=== PATIENT | male | born 1990 | race Caucasian/White ===

== ENCOUNTER → 2023-11-26 12:10 | Day surgery (SDC) | payer BC, SELFPAY ==
[2023-11-26] VITALS (12 sets, daily range): BP systolic 119–142; BP diastolic 73–93; BMI 29.4
--- NOTE | 2023-11-26 06:23 | ED.GENMED ---
History of Present Illness
General
Chief Complaint: Throat Problem
Source: patient
Exam Limitations: none
Time Seen by Provider: 11/26/23 06:14
Travel History
Have you had any contact with someone who has COVID-19?: No
Do you have any symptoms of coronavirus? Fever > 100 degrees, chills, cough, shortness of breath, sore throat, loss of taste or smell, muscle aches, or headache?: No
History of Present Illness
History of Present Illness:
See MDM
Past History
Past History
ED Past Medical History: Other (Eosinophilic esophagitis )
ED Past Surgical History: None
Social History
Tobacco: Non-smoker
Alcohol: None
Phy Exam
Physical Exam
Physical Exam:
See MDM
Course
Orders/Labs/Results
Orders:
Orders
11/26/23 06:21
0.9% Sodium Chloride 1000 ml [Nss] 1,000 ml IV BOLUS
Glucagon [GlucaGen] 1 mg IV NOW STA
11/26/23 06:50
Glucagon [GlucaGen] 1 mg IV NOW STA
11/26/23 06:51
Glucagon [GlucaGen] 1 mg .ROUTE .STK-MED ONE
Vital Signs
Initial and Last Documented VS:
Initial Vital Signs
Temp Pulse Resp BP Pulse Ox
98 F 68 22 142/82 100
11/26/23 05:40 11/26/23 05:40 11/26/23 05:40 11/26/23 05:40 11/26/23 05:40
Last Documented Vital Signs
Temp Pulse Resp BP Pulse Ox
98 F 68 22 142/82 100
11/26/23 05:40 11/26/23 05:40 11/26/23 05:40 11/26/23 05:40 11/26/23 05:40
MDM/Problems Addressed
Differential Diagnosis Includes:
HPI and MDM Narrative:
33-year-old male presenting with concern for esophageal food impaction. Patient states he was eating chicken pot last night and felt something get stuck. He does have a history of eosinophilic esophagitis. He states food is got stuck before but
never lasted this long. He is having trouble swallowing water. He states he is constantly coughing up mucus.
Patient is protecting airway. Will give IV fluids and will give dose of glucagon
Physical exam
General: Well appearing and non-toxic
HEENT: protecting airway. Posterior pharynx clear
Neck: appears supple
CV: No evidence of cyanosis
Resp: No accessory muscle use
Abd: Non-distended
Extremities: No deformities
Neuro: alert
Psych: Normal affect
Skin: Intact
Problems Addressed including Acute and Chronic Conditions affecting care:
1. Esophageal food impaction
Acuity: acute
Prognosis: stable
Details: Will give trial of glucagon
Updates
After 2 doses of glucagon, patient still unable to swallow his secretions. Will have GI evaluate
Differential Diagnosis (but not limited to): Esophageal food impaction, Schatzki ring, eosinophilic esophagitis
Testing considered: Neck x-ray but he denies bone-in chicken
Drug therapy (if applicable): OTC meds, please see d/c instruction regarding Rx drugs
Amount and/or Complexity of Data Reviewed
Clinical info obtained from: Patient
External data reviewed: N/A
Labs I independently reviewed (but not limited to): N/A
Radiology: N/A
Pulse Ox: not hypoxic
EKG independently reviewed: N/A
Palm And Back Forger: N/A
Critical Care: N/A
Risk of Complication:
Social Determinants of health: Good social support
Discussed with other providers: Gastroenterology
Escalation of Care includes Admit/Obs: Given the concern for esophageal food impaction and inability to swallow secretions, will have GI evaluate
Occasional wrong word or 'sound a like' substitutions may have occurred due to the inherent limitations of voice recognition software. Read the chart carefully and recognize, using context, where substitutions have occurred.
*Critical Care Note
Total Time (30-74mins, 75-104mins- exclusive of procedures): Not Applicable
ED Attending Note
-
Portions of this chart may have been created with voice recognition software.� Occasional wrong word or��sound alike� substitutions may have occurred due to the inherent limitations of voice recognition software.
Discharge Plan
Departure
Patient Disposition: GI LAB
Date of Disposition: 11/26/23
Time of Disposition: 07:21
Presentation/result/management discussed w/ accepting MD/DO: Gastroenterology
Discharge Problem:
Food impaction of esophagus
Referrals:
Jose Armando Shell PA-C [Family Provider] -
Interventions
Interventions:
*Risk Screen - Suicide Last Done: 11/26/23 05:40
*General Assessment Last Done: 11/26/23 06:23
*Neglect/Abuse Screening Last Done: 11/26/23 05:40
*ED COVID-19 Vaccine History Last Done: 11/26/23 06:23
ED-EENT Assessment Last Done: 11/26/23 06:23
ED- Pulmonary Assessment Last Done: 11/26/23 06:23
Discharge Date and Time
Print Language: SETSWANA
[2023-11-26] MEDS: GlucaGen 1 MG IV ×2 (06:31→06:53)
[2023-11-26] MEDS: NSS 1000 IV (06:31)
--- NOTE | 2023-11-26 08:09 | CON.GI ---
Addendum entered and electronically signed by Marli Matthews MD 11/26/23 11:14:
I saw and examined the patient.
The PRODUCT DEVELOPMENT CARPENTER's note was reviewed and I agree with the note.
Comment: This is a 33-year-old male who has past medical history of reflux esophagitis, EOE and dysphagia who had seen GI in [place] with [facility]. He was diagnosed with EOE about 4 years ago with endoscopy and also had dilatation and was started on
PPI he was on Prilosec but was having symptoms of diarrhea then switched to Protonix but had similar side effect so he completely stopped taking them about 3 months ago. He also recently saw an supply analyst. He now presents with symptoms of food
bolus impaction after he had eaten chicken parm last night for dinner at 5 PM and unable to swallow secretions. He did receive glucagon in the ER without much improvement of symptoms.
Assessment and plan reflux esophagitis, EOE with symptoms of dysphagia now with food bolus impaction and also prior history of dilatation about 4 years ago, came off his PPI about 3 months ago because of side effect of diarrhea. Will schedule him
for endoscopy with removal of food bolus and recommended that he restart PPI but may be at a lower dose and hopefully does not have diarrhea with the lower dose but if he does have diarrhea then told him to take Pepcid 40 mg twice daily. Also told
him to follow-up sooner with his GI at [place] he has an appointment in April and told him to move this up, will need to be started on budesonide or Dupixent especially if is unable to tolerate PPI. Also recommended that he try food
elimination diet as recommended by his supply analyst.
Original Note:
Consultation
-
Date/Time Consultation Requested: 11/26/23629
Date/Time Consultation Performed: 11/26/23 0745
Requesting Provider: Ronny Ortiz DO
Performing Provider: ZULMA Romero, Marli Matthews MD
Reason for Consultation: food impaction
Medical History
Chief Complaint / HPI
Chief Complaint: difficulty swallowing
History of Present Illness:
Pt is a 33yo presents with no prior food impactions but hx of esophagitis years ago and eosinophilic esophagitis diagnosed about 3-4 years ago. He reports EGD years ago with esophagitis. He repeat EGD about 3-4 years ago with intermittent
dysphagia and was diagnosed with eosinophilic esophagitis and dilation was completed through [facility] in [place]. He was placed on Prilosec with repeat EGD several months after that time. He eventually stopped with Prilosec with
loose stools(about 3-4 per day with normal stools 1-2 per day) was placed on Protonix with similar issues of loose stool. He stopped Protonix about 3 months ago. He had recent follow up with an health education specialist who discussed elimination diet but
referred back to GI to discuss Budesonide and Dupixent therapy. He is schedule with digestive in April. He now presents with onset of dysphagia after eating chicken parm at 5 pm. Pt states since that time unable to eat or drink and continued
to bring up saliva in ER. Glucogen given without any improvement.
Pt denies odynophagia other than lower chest discomfort with impaction. He denies GERD, abdominal pain, current diarrhea, constipation, blood or black in stools. No other current medications or anticoagulation. No prior colonoscopy.
Past Medical History
Past Medical History: Other (esophagitis years ago, eosinophilic esophagitis )
Social History
Tobacco: Former Smoker
Alcohol: Other (rare)
Drug: None
Employment: Employed
Family History
Family History: Other (no family hx colon cA or polyps, no family hx EOE)
Allergies / Home Medications
Allergy/AdvReac Type Severity Reaction Status Date / Time
Sulfa (Sulfonamide Allergy Unknown Verified 11/26/23 05:42
Antibiotics)
Review of Systems
-
History Source: Patient
Constitutional: Reports No Symptoms
EENT: Reports Other (dysphagia and inability to control secretions with impaction)
Respiratory: Reports No Symptoms
Cardiac: Reports No Symptoms
Abdomen/GI: Reports Nausea, Vomiting and Diarrhea (with PPI use )
: Reports No Symptoms
Musculoskeletal: Reports No Symptoms
Skin: Reports No Symptoms
Neurological: Reports No Symptoms
Endocrine: Reports No Symptoms
Hematologic/Lymphatic: Reports No Symptoms
Vital Signs
Temp Pulse Resp BP Pulse Ox
98 F 68 22 142/82 100
11/26/23 05:40 11/26/23 05:40 11/26/23 05:40 11/26/23 05:40 11/26/23 05:40
Physical Exam
Exam
General: Well Developed, Well Nourished and No Apparent Distress
HEENT: Normocephalic and Anicteric
Respiratory: Clear
Cardiac: Regular Rhythm and Other (minimal lower chest discomfort with impaction)
GI: Soft, Non Tender and Non Distended
Musculoskeletal: No Clubbing and No Cyanosis
Skin: Warm and Dry
Neuro: Awake, Alert and AO x 3
Psych: Calm
Results
Diagnostic Image Results:
Prior GI Procedures:
EGD: 3 in past
years ago with esophagitis
3-4 years ago with diagnosis of EOE and dilation with follow up study completed [facility]
Colonoscopy: none
Assessment / Plan
-
Pt is a 33yo presents with no prior food impactions but hx of esophagitis years ago and eosinophilic esophagitis diagnosed about 3-4 years ago. He reports EGD years ago with esophagitis. He repeat EGD about 3-4 years ago with intermittent
dysphagia and was diagnosed with eosinophilic esophagitis and dilation was completed through [facility] in [place]. He was placed on Prilosec with repeat EGD several months after that time. He eventually stopped with Prilosec with
loose stools(about 3-4 per day with normal stools 1-2 per day) was placed on Protonix with similar issues of loose stool. He stopped Protonix about 3 months ago. He had recent follow up with an health education specialist who discussed elimination diet but
referred back to GI to discuss Budesonide and Dupixent therapy. He is schedule with [facility] in April. He now presents with onset of dysphagia after eating chicken parm at 5 pm. Pt states since that time unable to eat or drink and continued
to bring up saliva in ER. Glucagon given without any improvement.
-food impaction
-hx eosinophilic esophagitis with prior dilation- not on current treatment
PLAN:
for EGD today with impaction
cont NPO
on discharge consider restart PPI therapy and elimination diet is able to tolerate medication
will need OP follow up and consider budesonide vs Dupixent therapy
-
-
Thank you for consultation and allowing me to participate in the patient's care. Please call the fund controller GI physician during the after hours with any questions or concerns.
== END ==
LOC: EMR 05:37 → GI 12:10
PROVIDERS: ATTENDING PHYSICIAN Internal Medicine Gastroenterology; EMERGENCY PHYSICIAN Student in an Organized Health Care Education/Training Program; FAMILY PHYSICIAN Physician Assistant
DX: T18.128A Food in esophagus causing other injury, initial encounter (principal); W44.F3XA Food entering into or through a natural orifice, initial encounter; R13.14 Dysphagia, pharyngoesophageal phase; K20.0 Eosinophilic esophagitis
CPT/HCPCS: 43247; 96361; 96374; 99285; J1610